=== PATIENT | male | born 1975 | race Caucasian/White ===

== ENCOUNTER 2024-06-24 17:31 | Emergency (ER) | payer MEDICARE, SELFPAY ==
[2024-06-24 17:48] VITALS: BP 119/76; PULSE 115; RESP 17; TEMP 36.6; O2SAT 98; BMI 22.7
[2024-06-24 20:32] VITALS: BP 127/75; PULSE 90; O2SAT 99
--- NOTE | 2024-06-24 20:47 | W.ED.MALEGU ---
HPI - Male Genitourinary General: Chief complaint: Urogenital-Male Stated complaint: pain in genital area Time Seen by Provider: 06/24/24 20:38 History of Present Illness: Presents to the ER with complaints of penile discharge. He says that he has had STDs in the past and feels like one of them. He says he is allergic to sulfa and doxycycline. Patient would prefer just to have treatment and not be tested at this time because he is for sure of what it is.. Related Data Allergies Allergy/AdvReac Type Severity Reaction Status Date / Time Sulfa (Sulfonamide Allergy Unknown Verified 06/24/24 17:51 Antibiotics) Review of Systems General: Reports: 10 or more systems reviewed and unremarkable except in HPI and below Physical Exam Const: COMMON NORMALS: no acute distress, average body habitus, patient oriented x3, no limitations, healthy appearing, alert and well nourished HENMT: COMMON NORMALS: normocephalic, atraumatic, hearing grossly normal bilaterally, external ears normal, Normal external nose present and moist oral mucous membranes HEAD & SCALP: normocephalic and atraumatic NOSE: Normal external nose present EXTERNAL EAR: Yes external ears normal Neck/C-Spine: COMMON NORMALS: full ROM, no lymphadenopathy, supple, no meningeal signs, no JVD and Thyroid normal THYROID: Thyroid normal Chest: COMMONS NORMALS: normal inspection of the chest and normal palpation of entire chest wall Resp: COMMON NORMALS: normal respiratory effort, No retractions, No use of accessory muscles and clear to auscultation bilaterally AUSCULTATION: clear to auscultation bilaterally Cardio: COMMON NORMALS: no JVD, regular rate, regular rhythm, S1 normal heart sound present, S2 normal heart sound present, No gallops present (Cardio), No clicks present (Cardio), No murmurs present (Cardio) and No rub (Cardio) RATE: regular rate RHYTHM: regular rhythm HEART SOUNDS: S1 normal heart sound present and S2 normal heart sound present GI: COMMON NORMALS: Normal to inspection, nondistended, normoactive bowel sounds present, Soft to palpation, non-tender, No hepatosplenomegaly present and no masses PALPATION: Yes Soft to palpation and Yes No hepatosplenomegaly present Neuro: COMMON NORMALS: patient oriented x3 SENSORIUM/ORIENTATION: Yes alert MENINGEAL SIGNS: Yes no meningeal signs Course Vital Signs: Vital signs: Vital Signs Temperature 97.9 F 06/24/24 17:48 Pulse Rate 90 06/24/24 20:32 Respiratory Rate 17 06/24/24 17:48 Blood Pressure 127/75 06/24/24 20:32 Pulse Oximetry 99 06/24/24 20:32 Oxygen Delivery Me thod Room Air 06/24/24 20:32 MDM - Male Medical Decision Making Patient presents with suspected STD. Would prefer treatment versus testing. Patient was treated with metronidazole, Rocephin, azithromycin, patient will be discharged home. Medical Records I reviewed the patient's medical records. Lab Data I reviewed the patient's lab results. All radiology interpretation(s) finalized by discharge Discharge Plan Discharge Patient Disposition: Home Clinical Impression: Concern about STD in male without diagnosis Condition: Stable Discharge Orders: Discharge ED (Routine); Ordered 06/24/24 Ordered By: Josafat Willard Referrals: Frankie Mathias MD [Primary Care Provider] - 1 week Patient Instructions: Sexually Transmitted Diseases (ED), Safe Sex Practices (ED) Activity Restrictions/Additional Instructions: Thank you for choosing [facility] for your healthcare needs today. Please realize that you were seen in the emergency department and that we are providing you with an emergency medical screening exam and this may not be a complete and all exclusive of all testing and/or medical workup we may need to determine your element or severity of your illness. It is very important that you follow-up as instructed with your primary care provider or specialist for the additional evaluation and to discuss your medical treatment plan. You may return to the emergency department should you have concerns or if your condition changes or worsens in any way. Coding Level of Care Code ED Program Clerk for Stacia Rangel
[2024-06-24] MEDS: cefTRIAXone 1,000 MG in water for injection-sterile 2.1 ML 2.1 MG IM (21:09)
[2024-06-24] MEDS: azithromycin 250 mg Tablet 1000 MG PO (21:09)
[2024-06-24] MEDS: metroNIDAZOLE 500 MG Tablet 2000 MG PO (21:09)
[2024-06-24 21:25] VITALS: BP 116/75; PULSE 90; O2SAT 99
[2024-06-24 21:43] LABS: Bilirubin Urine Negative (Negative); Blood Urine Trace (Negative); Glucose Urine UA Negative (Normal); Ketones Urine Trace (Negative); Leukocyte Esterase Urine 2+ (Negative); Nitrate Urine Negative (Negative); Protein Urine Trace (Negative); Specific Gravity, Urine 1.028 (1.005-1.030); Urine Appearance Cloudy (CLEAR); Urine Color Dark Yellow (Yellow); pH Urine 5.5 (5-7)
[2024-06-24 21:45] LABS: Add Urine Microscopic? YES; Bacteria Urine None Seen /hpf; Hyaline Casts Urine 2.46 /lpf; RBC Urine 0-2 /hpf (0-2); Squamous Epithelial Cell Urine 0-5 /hpf (0-5); WBC Urine >100 /hpf (0-5)
[2024-06-24 21:49] LABS: Add Urine Culture? Yes
== END 2024-06-24 21:26 | disposition home or self-care (01) ==
PROVIDERS: Emergency Provider Emergency Medicine; PCP Family Medicine
DX: R36.9 Urethral discharge, unspecified (principal)
CPT/HCPCS: 81001; 87086; 96372; 99284; J0696; Q0144

== ENCOUNTER 2024-12-21 07:08 | Emergency (ER) | payer MEDICARE, SELFPAY ==
[2024-12-21 07:15] VITALS: BP 153/95; PULSE 97; RESP 16; TEMP 36.7; O2SAT 97; BMI 21.9
--- NOTE | 2024-12-21 07:30 | ED_ITS ---
HPI - Eye Problem General: Chief complaint: Eye Problems Stated complaint: eyes feel like they are on fire Time Seen by Provider: 12/21/24 07:12 Source: patient Mode of arrival: ambulatory Limitations: no limitations History of Present Illness: 49-year-old male states that he has been having bilateral eye pain started last night worsened this morning. States he has had some redness and burning some slight drainage he rates his pain a 5 out of 10 he denies any severe vision problems he is not a contact wearer denies any injuries. Associated symptoms: Denies fever(s), headache(s), nausea, neck pain or vomiting Related Data Previous Rx's ?Medication ?Instructions ?Recorded erythromycin 5 mg/gram (0.5 %) eye 1 applic ophthalmic (eye) 5XD 5 12/21/24 ointment (3.5 gram tube) days #3.5 grams Allergies Allergy/AdvReac Type Severity Reaction Status Date / Time Sulfa (Sulfonamide Allergy Unknown Verified 06/24/24 17:51 Antibiotics) Review of Systems Const: Denies: fever(s), chills, body aches or change in appetite Eyes: Reports: eye discomfort ENMT: Denies: throat pain or dental pain Card: Denies: chest pain GI: Denies: abdominal pain, nausea or vomiting Musc: Denies: neck pain or back pain Skin/Breast: Denies: rash Neuro: Denies: headache(s) Physical Exam Const: COMMON NORMALS: no acute distress, patient oriented x3 and healthy appearing HENMT: COMMON NORMALS: normocephalic and atraumatic HEAD & SCALP: normocephalic and atraumatic Eye: COMMON NORMALS: Equal, round and reactive pupils present and EOMs intact bilaterally PUPIL: Yes Equal, round and reactive pupils present OTHER: Erythema of the conjunctive but noted slight drainage no abrasion or ulcer on fluorescein Neck/C-Spine: COMMON NORMALS: full ROM and supple Chest: COMMONS NORMALS: normal inspection of the chest Resp: COMMON NORMALS: normal respiratory effort Cardio: COMMON NORMALS: regular rate RATE: regular rate Extremity: COMMON NORMALS: normal to inspection and full ROM Neuro: COMMON NORMALS: patient oriented x3, moves all extremities and no focal motor deficits Psych: COMMON NORMALS: mental status grossly normal, Normal thought process present and cooperative THOUGHT PROCESS: Normal thought process present Skin: COMMON NORMALS: no rashes or lesions noted and no wounds GENERAL SKIN EXAM: no rashes or lesions noted Course Vital Signs: Vital signs: Vital Signs Temperature 98.1 F 12/21/24 07:15 Pulse Rate 97 12/21/24 07:15 Respiratory Rate 16 12/21/24 07:15 Blood Pressure 153/95 12/21/24 07:15 Pulse Oximetry 97 12/21/24 07:15 Oxygen Delivery Me thod Room Air 12/21/24 07:15 MDM - Eye Problem Medical Decision Making Patient presents here with conjunctivitis no signs of ulcer or abrasion he has no signs of acute angle glaucoma we will place him on erythromycin ointment he is follow-up with PCP return if worsening Medical Records I reviewed the patient's medical records. No radiology studies performed this visit Discharge Plan Discharge Patient Disposition: Home Clinical Impression: Conjunctivitis Condition: Stable Prescriptions: New erythromycin 5 mg/gram (0.5 %) ointment 1 applic ophthalmic (eye) 5XD 5 Days Qty: 3.5 0RF Discharge Orders: Discharge ED (Routine); Ordered 12/21/24 Ordered By: Diana Alston Referrals: Frankie Mathias MD [Primary Care Provider, Family Practice] Discharge Diet: Advance as tolerated Discharge Activity: Resume usual activity Patient Instructions: Conjunctivitis (ED) Print Language: Sinhala Coding Level of Care Code ED Hypertrichologist for Stacia Rangel
[2024-12-21] MEDS: tetracaine 0.5% Op Soln 4 mL Btl 1 DROP EYE-BOTH (07:33)
--- NOTE | 2024-12-21 08:02 | DCPLANNER ---
Patient has primary Frankie Mathias
--- NOTE | 2024-12-22 08:45 | DCPLANNER ---
messaged theyer to est pcp
== END 2024-12-21 07:41 | disposition home or self-care (01) ==
PROVIDERS: Emergency Provider Emergency Medicine; PCP Family Medicine
DX: H10.9 Unspecified conjunctivitis (principal)
CPT/HCPCS: 99283; J9999

== ENCOUNTER 2025-02-22 18:10 | Emergency (ER) | payer MEDICARE, SELFPAY ==
[2025-02-22 18:37] VITALS: BP 128/81; PULSE 92; TEMP 36.7; O2SAT 100
[2025-02-22 19:58] LABS: Hematocrit 39.2 % (37-53); Hemoglobin 12.80 g/dL (11.27-16.99); Mean Corpuscular HGB Conc 32.7 g/dL (30-55); Mean Corpuscular Hemoglobin 28.9 pg (27-33); Mean Corpuscular Volume 88.5 fl (82-101); Nucleated Red Blood Cells % 0 %; Platelet Count 241 10^3/cmm (157-399); Red Blood Count 4.43 10^6/uL (3.85-5.65); White Blood Count 6.74 10^3/uL (3.29-11.43)
[2025-02-22 20:18] LABS: Alanine Aminotransferase 31 U/L (0-41); Albumin Level 4.1 g/dL (3.5-5.2); Alkaline Phosphatase 94 U/L (40-130); Blood Urea Nitrogen 11 mg/dL (6-20); Calcium 9.2 mg/dL (8.5-10.5); Carbon Dioxide 25 mmol/L (22-29); Chloride 106 mmol/L (98-107); Creatinine Clr Calc Pharmacy 166.7535; Globulin 2.8 g/dL (1.3-4.6); Glucose 112 mg/dL (65-115); Osmolality Calculated 292 mOsm/kg (285-295); Sodium 141 mmol/L (136-145); Total Protein 6.9 g/dL (6.6-8.7)
[2025-02-22 20:33] LABS: Anion Gap 13.8 (5-19); Aspartate Amino Transferase 36 U/L (0-40); Potassium 3.8 mmol/L (3.5-5.1)
--- NOTE | 2025-02-22 20:50 | ED_ITS ---
Documented by User: LIDIA Godfrey 02/22/25 22:20 HPI - Male Genitourinary 2 General: Chief complaint: Urogenital-Male Stated complaint: Both kidneys Hurting L knee Pain Time Seen by Provider: 02/22/25 18:28 Source: patient Mode of arrival: ambulatory Limitations: no limitations History of Present Illness: Patient is a 50-year-old male who presents emergency department complaining of bilateral flank and back pain that has been bothering him for a day. States that he has a history of kidney issues, and states that he has been having dark urine and dysuria. Pain has been constant, has not taken any medications. Also states he is having diffuse joint pain. No nausea/vomiting, fevers, chills, abdominal pain, changes in bowel habits, or any other symptoms reported at this time. His vitals are stable, nontoxic-appearing. MD Complaint: other (Bilateral back and flank pain) Onset (ago): day(s) Severity: similar to previous episodes Associated symptoms: Reports dysuria; Deny nausea or vomiting Related Data Allergies Allergy/AdvReac Type Severity Reaction Status Date / Time doxycycline Allergy Unknown Verified 02/22/25 18:41 Sulfa (Sulfonamide Allergy Unknown Verified 02/22/25 18:41 Antibiotics) Review of Systems 2 General: Reports: 10 or more systems reviewed and unremarkable except in HPI and below Const: Denies: fever(s), chills or fatigue Eyes: Denies: change in vision ENMT: Denies: throat pain, ear or mastoid pain or nasal discharge Card: Denies: chest pain, palpitations, swelling of feet/ankles or lightheadedness Resp: Denies: dyspnea, productive cough or wheezing GI: Denies: abdominal pain, nausea, vomiting, diarrhea or constipation : Reports: flank pain, dysuria and other (Dark urine); Denies: difficulty urinating or urinary frequency Musc: Reports: back pain; Denies: neck pain or joint pain Skin/Breast: Denies: rash Neuro: Denies: headache(s), numbness in extremities or weakness in extremities Physical Exam 2 Const: COMMON NORMALS: no acute distress, average body habitus, patient oriented x3, no limitations, healthy appearing, alert and well nourished G ENERAL APPEARANCE: cooperative and comfortable ORIENTATION/CONSCIOUSNESS: Yes awake OTHER: nontoxic Neck/C-Spine: COMMON NORMALS: full ROM, supple, no meningeal signs and no JVD Resp: COMMON NORMALS: normal respiratory effort, No retractions, No use of accessory muscles and clear to auscultation bilaterally AUSCULTATION: clear to auscultation bilaterally, no crackles, no rales, no rhonchi and no wheezes Cardio: COMMON NORMALS: no JVD, regular rate, regular rhythm, No gallops present (Cardio), No clicks present (Cardio), No murmurs present (Cardio), No rub (Cardio) and Peripheral pulses 2+ throughout RATE: regular rate R HYTHM: regular rhythm PERIPHERAL PULSES: Peripheral pulses 2+ throughout GI: COMMON NORMALS: Normal to inspection, nondistended, normoactive bowel sounds present, Soft to palpation, non-tender, No hepatosplenomegaly present and no masses AUSCULTATION: Yes normoactive bowel sounds PALPATION: Yes Soft to palpation, No Guarding due to palpation present (GI), No Rigid due to palpation and Yes No hepatosplenomegaly present RECTAL EXAM: Yes deferred : COMMON NORMALS: Yes no CVA tenderness BLADDER/KIDNEY EXAM: Yes no CVA tenderness Back/Pelvis: COMMON NORMALS: no CVA tenderness Extremity: COMMON NORMALS: normal to inspection and full ROM Neuro: COMMON NORMALS: patient oriented x3, moves all extremities, no focal motor deficits and no sensory deficits noted SENSORIUM/ORIENTATION: Yes alert MENINGEAL SIGNS: Yes no meningeal signs Psych: COMMON NORMALS: mental status grossly normal, cooperative and speech normal SPEECH: Yes normal speech Skin: COMMON NORMALS: no rashes or lesions noted GENERAL SKIN EXAM: no rashes or lesions noted Course 2 Vital Signs: Vital signs: Vital Signs Temperature 98.1 F 02/22/25 18:37 Pulse Rate 92 02/22/25 18:37 Blood Pressure 128/81 02/22/25 18:37 Pulse Oximetry 100 02/22/25 18:37 Oxygen Delivery Me thod Room Air 02/22/25 18:37 MDM - Male Medical Decision Making Patient presented with back pain, stating it was his kidneys. Vital stable, nontoxic-appearing on exam. Negative CVA tenderness bilaterally. Overall the physical exam was reassuring. Lab work does not demonstrate any abnormalities, specifically urinalysis not showing any signs of infection. He notes improvement after medications, I suspect this is musculoskeletal versus other benign, specifically do not think that this is due to his kidneys. He is stable for discharge home, do not feel imaging necessary at this time but he is given strict return precautions and told to follow-up with primary care. Lab Data 02/22/25 19:51 02/22/25 19:51 Laboratory Results WBC 6.74 10^3/uL (3.29-11.43) 02/22/25 19:51 RBC 4.43 10^6/uL (3.85-5.65) 02/22/25 19:51 Hgb 12.80 g/dL (11.27-16.99) 02/22/25 19:51 Hct 39.2 % (37-53) 02/22/25 19:51 MCV 88.5 fl (82-101) 02/22/25 19:51 MCH 28.9 pg (27-33) 02/22/25 19:51 MCHC 32.7 g/dL (30-55) 02/22/25 19:51 RDW 12.1 % (12.1-15.1) 02/22/25 19:51 Plt Count 241 10^3/cmm (157-399) 02/22/25 19:51 MPV 10.9 fL (7.4-10.4) H 02/22/25 19:51 Neut % (Auto) 58.4 % 02/22/25 19:51 Lymph % (Auto) 27.6 % 02/22/25 19:51 [place] % (Auto) 9.6 % 02/22/25 19:51 Eos % (Auto) 3.4 % 02/22/25 19:51 Baso % (Auto) 0.9 % 02/22/25 19:51 Neut # (Auto) 3.93 10^3/uL (1.8-7.7) 02/22/25 19:51 Lymph # (Auto) 1.9 10^3/uL (0.8-4.8) 02/22/25 19:51 [place] # (Auto) 0.7 10^3/uL (0.2-0.9) 02/22/25 19:51 Eos # (Auto) 0.2 10^3/uL (0.0-0.8) 02/22/25 19:51 Baso # (Auto) 0.1 10^3/uL (0.0-0.1) 02/22/25 19:51 Nucleated RBC % (auto) 0 % 02/22/25 19:51 Nucleated RBCs # 0.0 /100WBC 02/22/25 19:51 Sodium 141 mmol/L (136-145) 02/22/25 19:51 Potassium 3.8 mmol/L (3.5-5.1) 02/22/25 19:51 Chloride 106 mmol/L (98-107) 02/22/25 19:51 Carbon Dioxide 25 mmol/L (22-29) 02/22/25 19:51 Anion Gap 13.8 (5-19) 02/22/25 19:51 BUN 11 mg/dL (6-20) 02/22/25 19:51 Creatinine 0.5 mg/dL (0.7-1.2) L 02/22/25 19:51 GFR Calculation 176.7 mL/min (90-130) H 02/22/25 19:51 Glucose 112 mg/dL (65-115) 02/22/25 19:51 Calculated Osmolality 292 mOsm/kg (285-295) 02/22/25 19:51 Calcium 9.2 mg/dL (8.5-10.5) 02/22/25 19:51 Total Bilirubin 0.2 mg/dL (0.15-1.2) 02/22/25 19:51 AST 36 U/L (0-40) 02/22/25 19:51 ALT 31 U/L (0-41) 02/22/25 19:51 Alkaline Phosphatase 94 U/L (40-130) 02/22/25 19:51 Total Protein 6.9 g/dL (6.6-8.7) 02/22/25 19:51 Albumin 4.1 g/dL (3.5-5.2) 02/22/25 19:51 Globulin 2.8 g/dL (1.3-4.6) 02/22/25 19:51 Urine Color Yellow (Yellow) 02/22/25 21:30 Urine Appearance Clear (CLEAR) 02/22/25 21:30 Urine pH 5.5 (5-7) 02/22/25 21:30 Ur Specific [place] 1.013 (1.005-1.030) 02/22/25 21:30 Urine Protein Negative (Negative) 02/22/25 21:30 Urine Glucose (UA) Negative (Normal) 02/22/25 21:30 Urine Ketones Negative (Negative) 02/22/25 21:30 Urine Blood Negative (Negative) 02/22/25 21:30 Urine Nitrate Negative (Negative) 02/22/25 21:30 Urine Bilirubin Negative (Negative) 02/22/25 21:30 Urine Urobilinogen 0.2 mg/dL (Negative) 02/22/25 21:30 Ur Leukocyte Esterase Negative (Negative) 02/22/25 21:30 Urine RBC 0-2 /hpf (0-2) 02/22/25 21:30 Urine WBC 0-5 /hpf (0-5) 02/22/25 21:30 Ur Squamous Epith Cells 0-5 /hpf (0-5) 02/22/25 21:30 Amorphous Sediment Not Reportable 02/22/25 21:30 Urine Bacteria None seen /hpf (NONE) 02/22/25 21:30 Hyaline Casts 0-4 /lpf H 02/22/25 21:30 Discharge Plan Discharge Patient Disposition: Home Clinical Impression: Musculoskeletal back pain Condition: Stable Discharge Orders: Discharge ED (Routine); Ordered 02/22/25 Ordered By: West Brenner Referrals: Frankie Mathias MD [Primary Care Provider, [facility]] Patient Instructions: Patient Portal & [facility] Instructions Activity Restrictions/Additional Instructions: Motrin and Tylenol for pain. Drink plenty of fluids. Follow-up with your primary care provider for reevaluation. Please return with any fevers, abdominal pain, vomiting, or any worsening of condition. Print Language: Yi Coding Level of Care Code ED Nutrition Consultant for Chg Fwd Documented by User: Isrrael Ozuna MD 02/22/25 21:29 HPI - Male Genitourinary 2 General: Chief complaint: Urogenital-Male Stated complaint: Both kidneys Hurting L knee Pain Time Seen by Provider: 02/22/25 18:28 Related Data Allergies Allergy/AdvReac Type Severity Reaction Status Date / Time doxycycline Allergy Unknown Verified 02/22/25 18:41 Sulfa (Sulfonamide Allergy Unknown Verified 02/22/25 18:41 Antibiotics) Course 2 Vital Signs: Vital signs: Vital Signs Temperature 98.1 F 02/22/25 18:37 Pulse Rate 92 02/22/25 18:37 Blood Pressure 128/81 02/22/25 18:37 Pulse Oximetry 100 02/22/25 18:37 Oxygen Delivery Me thod Room Air 02/22/25 18:37 MDM - Male Lab Data 02/22/25 19:51 02/22/25 19:51 Laboratory Results WBC 6.74 10^3/uL (3.29-11.43) 02/22/25 19:51 RBC 4.43 10^6/uL (3.85-5.65) 02/22/25 19:51 Hgb 12.80 g/dL (11.27-16.99) 02/22/25 19:51 Hct 39.2 % (37-53) 02/22/25 19:51 MCV 88.5 fl (82-101) 02/22/25 19:51 MCH 28.9 pg (27-33) 02/22/25 19:51 MCHC 32.7 g/dL (30-55) 02/22/25 19:51 RDW 12.1 % (12.1-15.1) 02/22/25 19:51 Plt Count 241 10^3/cmm (157-399) 02/22/25 19:51 MPV 10.9 fL (7.4-10.4) H 02/22/25 19:51 Neut % (Auto) 58.4 % 02/22/25 19:51 Lymph % (Auto) 27.6 % 02/22/25 19:51 [place] % (Auto) 9.6 % 02/22/25 19:51 Eos % (Auto) 3.4 % 02/22/25 19:51 Baso % (Auto) 0.9 % 02/22/25 19:51 Neut # (Auto) 3.93 10^3/uL (1.8-7.7) 02/22/25 19:51 Lymph # (Auto) 1.9 10^3/uL (0.8-4.8) 02/22/25 19:51 [place] # (Auto) 0.7 10^3/uL (0.2-0.9) 02/22/25 19:51 Eos # (Auto) 0.2 10^3/uL (0.0-0.8) 02/22/25 19:51 Baso # (Auto) 0.1 10^3/uL (0.0-0.1) 02/22/25 19:51 Nucleated RBC % (auto) 0 % 02/22/25 19:51 Nucleated RBCs # 0.0 /100WBC 02/22/25 19:51 Sodium 141 mmol/L (136-145) 02/22/25 19:51 Potassium 3.8 mmol/L (3.5-5.1) 02/22/25 19:51 Chloride 106 mmol/L (98-107) 02/22/25 19:51 Carbon Dioxide 25 mmol/L (22-29) 02/22/25 19:51 Anion Gap 13.8 (5-19) 02/22/25 19:51 BUN 11 mg/dL (6-20) 02/22/25 19:51 Creatinine 0.5 mg/dL (0.7-1.2) L 02/22/25 19:51 GFR Calculation 176.7 mL/min (90-130) H 02/22/25 19:51 Glucose 112 mg/dL (65-115) 02/22/25 19:51 Calculated Osmolality 292 mOsm/kg (285-295) 02/22/25 19:51 Calcium 9.2 mg/dL (8.5-10.5) 02/22/25 19:51 Total Bilirubin 0.2 mg/dL (0.15-1.2) 02/22/25 19:51 AST 36 U/L (0-40) 02/22/25 19:51 ALT 31 U/L (0-41) 02/22/25 19:51 Alkaline Phosphatase 94 U/L (40-130) 02/22/25 19:51 Total Protein 6.9 g/dL (6.6-8.7) 02/22/25 19:51 Albumin 4.1 g/dL (3.5-5.2) 02/22/25 19:51 Globulin 2.8 g/dL (1.3-4.6) 02/22/25 19:51 Urine Color Yellow (Yellow) 02/22/25 21:30 Urine Appearance Clear (CLEAR) 02/22/25 21:30 Urine pH 5.5 (5-7) 02/22/25 21:30 Ur Specific [place] 1.013 (1.005-1.030) 02/22/25 21:30 Urine Protein Negative (Negative) 02/22/25 21:30 Urine Glucose (UA) Negative (Normal) 02/22/25 21:30 Urine Ketones Negative (Negative) 02/22/25 21:30 Urine Blood Negative (Negative) 02/22/25 21: Urine Nitrate Negative (Negative) 02/22/25 21: Urine Bilirubin Negative (Negative) 02/22/25 21:30 Urine Urobilinogen 0.2 mg/dL (Negative) 02/22/25 21:30 Ur Leukocyte Esterase Negative (Negative) 02/22/25 21:30 Urine RBC 0-2 /hpf (0-2) 02/22/25 21:30 Urine WBC 0-5 /hpf (0-5) 02/22/25 21:30 Ur Squamous Epith Cells 0-5 /hpf (0-5) 02/22/25 21:30 Amorphous Sediment Not Reportable 02/22/25 21:30 Urine Bacteria None seen /hpf (NONE) 02/22/25 21:30 Hyaline Casts 0-4 /lpf H 02/22/25 21:30 No radiology studies performed this visit Discharge Plan Discharge Patient Disposition: Home Clinical Impression: Musculoskeletal back pain Condition: Stable Discharge Orders: Discharge ED (Routine); Ordered 02/22/25 Ordered By: West Brenner Referrals: Frankie Mathias MD [Primary Care Provider, Family Practice] Patient Instructions: Patient Portal & [place] Instructions Activity Restrictions/Additional Instructions: Motrin and Tylenol for pain. Drink plenty of fluids. Follow-up with your primary care provider for reevaluation. Please return with any fevers, abdominal pain, vomiting, or any worsening of condition. Print Language: Yi Coding Level of Care Code ED Nutrition Consultant for Stacia Rangel
[2025-02-22 21:37] LABS: Glucose Urine UA Negative (Normal); Nitrate Urine Negative (Negative); Specific Gravity, Urine 1.013 (1.005-1.030)
[2025-02-22 21:42] LABS: Add Urine Microscopic? YES
[2025-02-22] MEDS: HYDROcodone-acetaminophen 7.5-325 mg Tablet 1 TAB PO (21:48)
== END 2025-02-22 22:11 | disposition home or self-care (01) ==
PROVIDERS: Emergency Provider Physician Assistant; PCP Family Medicine
DX: M54.89 Other dorsalgia (principal)
CPT/HCPCS: 36415; 80053; 81001; 85025; 96372; 99284; J1100; J1885; J9999

== ENCOUNTER 2025-06-01 16:22 | Emergency (ER) | payer MEDICARE, SELFPAY ==
--- NOTE | 2025-06-01 16:23 | XRR_ITS ---
PROCEDURE INFORMATION: Exam: XR Right Foot Exam date and time: 06/01/2025 4:29 PM Age: 50 years old Clinical indication: Injury or trauma; Blunt trauma; Injury details: Fall down 6 stairs, swelling to lateral top area of right foot TECHNIQUE: Imaging protocol: Radiologic exam of the right foot. Views: 3 or more views. COMPARISON: No relevant prior studies available. FINDINGS: Bones/joints: Normal. Soft tissues: Normal. XR/XR foot RT min 3V* [id number] IMPRESSION: No acute findings.
[2025-06-01 16:25] VITALS: BP 144/90; PULSE 74; RESP 16; TEMP 36.9; O2SAT 100; BMI 22.7
--- NOTE | 2025-06-01 16:29 | ED_ITS ---
HPI - Extremity Problem General: Chief complaint: Extremity Injury, Lower Stated complaint: rt foot inj Time Seen by Provider: 06/01/25 16:28 Source: patient Mode of arrival: wheelchair Limitations: no limitations History of Present Illness: Patient is a 50-year-old male who presents emergency department after injuring his right foot. He arrives with brace on his left leg status post surgery, and has been using crutches. He states that while walking down the stairs using the crutches he tripped and rolled his right foot, is reporting pain to the dorsum of the right foot extending to the right third toe. Mild swelling noted, also some mild bruising is reported. Cannot bear weight secondary to pain. No other injuries from the fall. Is requesting something for pain at this time. No previous fractures or injuries to the right foot. MD Complaint: extremity pain and extremity swelling Onset (ago): minute(s) Pain Consistency: constant Location: right and lower extremity (foot) Associated symptoms: Deny chest pain, fever(s) or rash Related Data Allergies Allergy/AdvReac Type Severity Reaction Status Date / Time doxycycline Allergy Unknown Verified 06/01/25 16:28 Sulfa (Sulfonamide Allergy Unknown Verified 06/01/25 16:28 Antibiotics) Review of Systems General: Reports: 10 or more systems reviewed and unremarkable except in HPI and below Const: Denies: fever(s) or chills Card: Denies: chest pain Resp: Denies: dyspnea or productive cough GI: Denies: abdominal pain, nausea, vomiting or diarrhea : Denies: flank pain Musc: Reports: extremity pain (Right foot), extremity swelling (Right foot) and other (Right foot bruising); Denies: neck pain, back pain, joint pain, joint swelling, joint redness, joint warmth, limited range of motion or muscle weakness Skin/Breast: Denies: rash Neuro: Denies: headache(s), numbness in extremities or weakness in extremities Physical Exam Const: COMMON NORMALS: no acute distress, patient oriented x3, no limitations, healthy appearing, alert and well nourished HENMT: COMMON NORMALS: normocephalic and atraumatic HEAD & SCALP: normo cephalic and atraumatic Neck/C-Spine: COMMON NORMALS: full ROM, supple and no meningeal signs Extremity: COMMON NORMALS: capillary refill normal, no joint enlargement and no clubbing, cyanosis or edema NARRATIVE EXTREMITY EXAM: Tender to palpation to right dorsum of foot. Mild swelling noted, with bruising. Full sensations, range of motion intact. Brace left leg Neuro: COMMON NORMALS: patient oriented x3, moves all extremities, no focal motor deficits and no sensory deficits noted SENSORIUM/ORIENTATION: Yes alert MENINGEAL SIGNS: Yes no meningeal signs Skin: COMMON NORMALS: no rashes or lesions noted GENERAL SKIN EXAM: no rashes or lesions noted Course Vital Signs: Vital signs: Vital Signs Temperature 98.5 F 06/01/25 16:25 Pulse Rate 72 06/01/25 17:34 Respiratory Rate 16 06/01/25 16:25 Blood Pressure 138/88 06/01/25 17:34 Pulse Oximetry 98 06/01/25 17:34 Oxygen Delivery Me thod Room Air 06/01/25 17:34 MDM - Extremity (Nontraumatic) Medical Decision Making Patient presented for evaluation of right foot injury after injuring it while ambulating with crutches as he has been rehabbing left leg status post surgery. Bruising and swelling noted on exam to the right foot but no significant signs of trauma or deformity. X-ray shows no acute findings this is a right foot sprain likely and he is informed of conservative measures to take at home. Allow discharge at this time he did receive Toradol IM here in the ED. Lab Data Radiology Impressions Foot X-Ray 06/01/25 16:23 IMPRESSION: No acute findings. All radiology interpretation(s) finalized by discharge Discharge Plan Discharge Patient Disposition: Home Clinical Impression: Right foot sprain Condition: Stable Discharge Orders: Discharge ED (Routine); Ordered 06/01/25 Ordered By: [place]ner Referrals: Frankie Mathias MD [Primary Care Provider, Family Practice] Patient Instructions: Patient Portal & [facility] Instructions Activity Restrictions/Additional Instructions: Discharge Instructions: Right Foot Sprain Diagnosis: Right foot sprain What is a foot sprain? A sprain is an injury to the ligaments (the strong bands of tissue that connect bones together). Your X-rays showed no broken bones. Most sprains heal well with proper home care. Home Care Instructions: Rest and Activity - Limit activities that cause pain or discomfort - You may bear weight on your foot as tolerated - use crutches if needed for comfort - Gradually increase your activity as pain allows - Avoid running, jumping, or sports until cleared by your doctor Ice - Apply ice to the injured area for 20-30 minutes, 3-4 times daily for the first few days - Use a bag filled with ice and water wrapped in a damp towel - Never place ice directly on your skin Compression - Wear a compression wrap or ankle brace as recommended - The wrap should be snug but not too tight - loosen it if you notice numbness, tingling, increased pain, or color changes in your toes Elevation - Elevate your foot above the level of your heart when sitting or lying down - This helps reduce swelling Pain Management - You may take [id number] pain medications such as ibuprofen (Advil, Motrin) or naproxen (Aleve) as directed on the package, unless you have been told not to take these medications - Acetaminophen (Tylenol) is another option for pain relief What to Expect: - Swelling and pain typically improve over 1-2 weeks - Full recovery may take several weeks depending on the severity of your sprain - Some stiffness is normal during healing Follow-Up: - Schedule a follow-up appointment with your primary care doctor or process safety specialist in 1-2 weeks, or as directed - Physical therapy may be recommended to help restore strength, flexibility, and balance When to Seek Immediate Medical Attention: Return to the emergency department or call your doctor right away if you experie nce: - Severe pain that is not controlled with [id number] medications - Increased swelling, redness, or warmth in your foot - Numbness or tingling in your toes - Inability to bear any weight on your foot - Fever or signs of infection - Blue or cold toes - Pain that worsens instead of improving after a few days Important Reminders: - Do not apply heat to your foot during the first week after injury - Wear supportive, comfortable shoes - Follow all activity restrictions - Complete any physical therapy exercises as prescribed If you have any questions or concerns about your recovery, please contact your healthcare provider. Print Language: Chilean Coding Level of Care Code ED Chip Applying Machine Tender for Stacia Rangel
[2025-06-01 17:34] VITALS: BP 138/88; PULSE 72; O2SAT 98
== END 2025-06-01 17:35 | disposition home or self-care (01) ==
PROVIDERS: Emergency Provider Physician Assistant; PCP Family Medicine
DX: S93.601A Unspecified sprain of right foot, initial encounter (principal); W18.40XA Slipping, tripping and stumbling without falling, unspecified, initial encounter; Z98.890 Other specified postprocedural states
CPT/HCPCS: 73630; 96372; 99284; J1885